=== PATIENT | male | born 1930 | race Caucasian/White ===

== ENCOUNTER 2017-03-09 09:31 | Inpatient (IN) | payer MEDICARE, OTHER ==
[~2017-03-09] VITALS: Ht 182.9 cm; Wt 81.7 kg
[~2017-03-09 09:31] MED LIST: AMLO5TAB4 PO; FENO54TA3 PO; FLUO10CA26 PO; GABA300C PO; HYDR-3658 PO; LORA-676 PO; LOVA20TA2 PO; METF500T PO; OMEP20CA4 PO; RISP2TAB5 PO; TERA5CAP4 PO
--- NOTE | 2017-03-09 09:45 | NUR ---
PT BIB RA FROM [facility] FOR LOW O2 SAT AND INCREASING SOB. BREATHING LABORED, SAT 92% ON 10L VIA MASK WHICH WAS INCREASED FROM 8L UPON ARRIVAL. SKIN WARM, DRY. AFEBRILE. NOTED WITH DIFFUSE URTICARIA OVER WHOLE BODY. NO COMPLAINTS OF PAIN. NO COUGH. AT BASELINE LOC. ON C-DIFF ISOLATION, RECEIVING ABX CURRENTLY. IN ER BED 05 ON MONITOR AND CONTINUOUS PULSE OX.
[2017-03-09] MEDS ORDERED: ALBUTEROL FS 2.5 MG/3 ML VIAL.NEB NEB ONE (10:00)
[2017-03-09] MEDS ORDERED: IPRATROPIUM NEB FS 0.5 MG/2.5 ML AMPUL.NEB NEB ONE (10:00)
[2017-03-09] MEDS ORDERED: predniSONE 20 MG TABLET PO ONE (10:00)
[2017-03-09] MEDS ORDERED: OMEG-9 PO (10:04)
[2017-03-09] MEDS ORDERED: LOSA50TA21 PO (10:04)
[2017-03-09] MEDS ORDERED: DONE10TA11 PO (10:04)
[2017-03-09] MEDS ORDERED: GABA-534 PO (10:04)
[2017-03-09] MEDS ORDERED: ACID1TAB12 PO (10:04)
[2017-03-09] MEDS ORDERED: CALC-261 PO (10:04)
[2017-03-09] MEDS ORDERED: APIX5TAB PO (10:04)
[2017-03-09] MEDS ORDERED: MULT1TAB11 PO (10:04)
[2017-03-09] MEDS ORDERED: PRED20TA PO (10:04)
[2017-03-09] MEDS ORDERED: DILT240C2 PO (10:04)
[2017-03-09] MEDS ORDERED: TRIA15OI2 TP (10:04)
[2017-03-09] MEDS ORDERED: AMIO200T2 PO (10:04)
[2017-03-09] MEDS ORDERED: MAGN400O6 PO (10:04)
[2017-03-09] MEDS ORDERED: ALBU8.5H8 IH (10:04)
[2017-03-09] MEDS ORDERED: ACET-868 PO (10:04)
[2017-03-09] MEDS ORDERED: LATA2.5D7 EACHEYE (10:04)
[2017-03-09] MEDS ORDERED: PSYL1PAC8 PO (10:04)
[2017-03-09] MEDS ORDERED: IPRA3AMP IH (10:04)
[2017-03-09] MEDS ORDERED: FINA5TAB4 PO (10:04)
[2017-03-09] MEDS ORDERED: METR500T PO (10:04)
[2017-03-09] MEDS ORDERED: MECL12.582 PO (10:04)
[2017-03-09] MEDS ORDERED: BIMA2.5D5 EACHEYE (10:04)
[2017-03-09] MEDS ORDERED: INSU100V27 SQ (10:04)
[2017-03-09] MEDS ORDERED: predniSONE 20 MG TABLET ONE (10:05)
[2017-03-09 10:06] LABS: BASOPHILS % (AUTO) 0.3 % (0.0-2.0); EOSINOPHILS # (AUTO) 0.1 /CMM (0.0-0.7); EOSINOPHILS % (AUTO) 0.6 % (0.0-6.0); HEMATOCRIT 39 % (39-51); LYMPHOCYTES # (AUTO) 0.4 /CMM (0.8-4.8); LYMPHOCYTES % (AUTO) 2.4 % (20.0-44.0); MEAN CORPUSCULAR HEMOGLOBIN 31 PG (26.0-33.0); MEAN CORPUSCULAR HGB CONC 34 g/dl (31.0-36.0); MEAN CORPUSCULAR VOLUME 92 fL (80-96); MONOCYTES # (AUTO) 0.6 /CMM (0.1-1.30); MONOCYTES % (AUTO) 3.7 % (2.0-12.0); NEUTROPHILS # (AUTO) 13.9 /CMM (1.8-8.9); PLATELET COUNT (AUTO) 231 /CMM (150-450); RDW COEFFICIENT OF VARIATION 16.1 (11.5-15.0); WHITE BLOOD COUNT (AUTO) 14.9 K/uL (4.3-11.0)
[2017-03-09] MEDS ORDERED: IPRATROPIUM NEB FS 0.5 MG/2.5 ML AMPUL.NEB ONE (10:07)
[2017-03-09] MEDS ORDERED: ALBUTEROL FS 2.5 MG/3 ML VIAL.NEB ONE (10:07)
[2017-03-09 10:16] LABS: CARBON DIOXIDE 26 mmol/L (21-32); CHLORIDE 101 mmol/L (98-107); CREATININE 0.9 mg/dL (0.6-1.3); GLUCOSE 265 mg/dL (74-106); SODIUM SERUM 137 mmol/L (136-145); UREA NITROGEN, BLOOD 13 mg/dL (7-18)
[2017-03-09 10:25] LABS: INR 1.22 (0.87-1.13); PROTHROMBIN TIME 12.7 SECS (9.5-12.7)
[2017-03-09 10:28] LABS: ALANINE AMINOTRANSFERASE 23 U/L (12-78); ALBUMIN 2.1 g/dL (3.4-5.0); ALKALINE PHOSPHATASE 66 U/L (46-116); ASPARTATE AMINOTRANSFERASE 17 U/L (15-37); B-TYPE NATRIURETIC PEPTIDE 1092 PG/ML (0-125); BILIRUBIN,DIRECT 0.2 mg/dL (0.0-0.2); BILIRUBIN,TOTAL 0.5 mg/dL (0.2-1.0); TOTAL PROTEIN, SERUM 5.7 g/dL (6.4-8.2)
[2017-03-09 10:29] LABS: TROPONIN I < 0.017 ng/mL (0.00-0.056)
--- NOTE | 2017-03-09 10:32 | NUR ---
NOTIFIED OF LACTIC ACID 2.7 AND O2 SAT 89% ON 10L VIA SIMPLE MASK. PER DR MADRIGAL, OK FOR 89%, DO NOT PLACE ON NRB AT THIS TIME. WILL CONTINUE TO CLOSELY MONITOR PULSE OX.
[2017-03-09] MEDS ORDERED: IV NS 0.9% 1,000 ML BAG IV ONE (11:00)
[2017-03-09] MEDS ORDERED: LEVOFLOXACIN 750 MG /D5W 150ML 150 ML IV ONE ×2 (11:00→11:41)
[2017-03-09] MEDS ORDERED: PIPERACILLIN /TAZOBACTAM 3.375 G in IV D5W 50 ML IV ONE (11:00)
--- NOTE | 2017-03-09 11:13 | NUR ---
O2 SAT DROPPED TO 84%. MD NOTIFIED. PLACED ON NRB MASK AT 15L.
--- NOTE | 2017-03-09 11:23 | NUR ---
BED 317
--- NOTE | 2017-03-09 11:32 | NUR ---
DR. ASUNCION ACKERMAN.
[2017-03-09] MEDS ORDERED: PIPERACILLIN /TAZOBACTAM 3.375 G VIAL IV ONE (11:41)
[2017-03-09 11:53] LABS: ABG BASE EXCESS -0.2 mmol/L; ABG OXYGEN SATURATION 90.7 % (92.0-98.5); ABG PCO2 28.2 mmHg (35.0-45.0); ABG PH 7.506 (7.350-7.450); ABG PO2 59.3 mmHg (75.0-100.0); AaDO2 481.5 mmHg; COHb 0.7 % (0.5-1.5); MetHb 0.4 % (0.0-1.5); O2Hb 89.7 % (94.0-97.0); SITE, ABG Right Radial; VENT MODE, BG NRB 15L
--- NOTE | 2017-03-09 12:33 | NUR ---
RESTING QUIETLY, TOLERATING AT 90% ON NRB MASK AT 15L. OK PER MD. ALL OTHER VSS. ALL NEEDS ATTENDED TO. FAMILY UPDATED WITH PLAN OF CARE.
[2017-03-09 14:05] LABS: APPEARANCE,URINE CLEAR (CLEAR); BILIRUBIN,URINE NEGATIVE (NEGATIVE); BLOOD, URINE 1+ Ery/uL (NEGATIVE); COLOR,URINE DARK YELLO (YELLOW); KETONES,URINE NEGATIVE (NEGATIVE); LEUKOCYTE ESTERASE ,URINE NEGATIVE (NEGATIVE); NITRITE, URINE POSITIVE (NEGATIVE); PH,URINE 6.5 (5.0-8.0); PROTEIN,URINE 1+ mg/dl (NEGATIVE); UGLUCOSE NEGATIVE (NEGATIVE); UROBILINOGEN,URINE 0.2 EU/dL (0.2)
[2017-03-09 14:45] LABS: BACTERIA,URINE None seen /HPF (None Seen); SQUAMOUS EPITHELIAL CELL,UR Few /HPF (None Seen); WBC,URINE 0-2 /HPF (0-3)
--- NOTE | 2017-03-09 14:52 | NUR ---
BED [address].
--- NOTE | 2017-03-09 15:00 | NUR ---
RESTING QUIETLY, NO INCREASED DISTRESS. ALL NEEDS ATTENDED TO. TOLERATING NRB MASK.
--- NOTE | 2017-03-09 15:29 | NUR ---
REPORT GIVEN TO TALISHA GOODE FOR ADMISSION
--- NOTE | 2017-03-09 15:45 | NUR ---
PT TRANSPORTED TO CT THEN TO 105 VIA ACLS PROTOCOL. REMAINS ON NRB MASK.
[2017-03-09 16:42] VITALS: BP 111/54
[2017-03-09] MEDS ORDERED: POTASSIUM CHLORIDE 20 MEQ TAB.PRT.SR PO ONE (18:30)
[2017-03-09] MEDS ORDERED: DEXTROSE 50%-WATER 50 ML DISP.SYRIN IV PRN (19:00)
[2017-03-09 20:00] VITALS: BP 127/67
--- NOTE | 2017-03-09 20:00 | NUR ---
received pt from day shift, alert, follows commands, s/p COPD exacerbation, lungs congested/diminished, no edema, on 12L non rebreather, sat 91-93%, SR, 1 degree block, BBB, excoriation and generalized raines noted, v/s stable, no pain, pt turned and repositioned.
[2017-03-09] MEDS: PIPERACILLIN /TAZOBACTAM 3.375 G in IV D5W 50 ML IV SCH (20:46)
[2017-03-09] MEDS ORDERED: ACETAMINOPHEN 325 MG TABLET PO PRN (21:00)
[2017-03-09] MEDS ORDERED: MECLIZINE HCL 12.5 MG TABLET PO PRN (21:00)
[2017-03-09] MEDS ORDERED: MAGNESIUM HYDROXIDE 30 ML UDC PO PRN (21:00)
[2017-03-09] MEDS ORDERED: ALBUTEROL SULFATE 8 GM HFA.AER.AD IH PRN (21:00)
[2017-03-09] MEDS ORDERED: MISCELLANEOUS MED 1 EA EA XX ONE ×3 (21:00)
[2017-03-09] MEDS: ATORVASTATIN 10 MG TABLET PO SCH (21:35)
[2017-03-09] MEDS: FINASTERIDE (5 MG) 5 MG TABLET PO SCH (21:35)
[2017-03-09] MEDS: TERAZOSIN HCL 5 MG CAPSULE PO SCH (21:35)
[2017-03-09] MEDS: GABAPENTIN 300 MG CAPSULE PO SCH (21:36)
[2017-03-09] MEDS: DONEPEZIL 5 MG TABLET PO SCH (21:36)
[2017-03-09] MEDS: LATANOPROST EYE DROP 0.005% 2.5 ML BOTTLE EACHEYE SCH (21:36)
[2017-03-09] MEDS: METRONIDAZOLE 500 MG TABLET PO SCH (21:36)
[2017-03-09] MEDS ORDERED: BIMATOPROST 2.5 ML DROPS OP SCH (22:00)
[2017-03-09] MEDS: BLOOD SUGAR DIAGNOSTIC 1 EACH STRIP IN SCH (22:35)
[2017-03-09] MEDS: INSULIN REGULAR, HUMAN 100 UNIT/ML 3 ML VIAL SQ PRN (22:35)
[2017-03-09] MEDS: IPRATROPIUM NEB FS 0.5 MG/2.5 ML AMPUL.NEB NEB SCH (23:11)
[2017-03-10] VITALS (35 sets, daily range): BP systolic 98–169; BP diastolic 56–85
--- NOTE | 2017-03-10 00:17 | NUR ---
pt is resting in the bed, v/s stable, no pain, sat 95%, on non rebreather mask.
[2017-03-10] MEDS: PIPERACILLIN /TAZOBACTAM 3.375 G in IV D5W 50 ML IV SCH ×4 (02:09→20:34)
[2017-03-10] MEDS: IPRATROPIUM NEB FS 0.5 MG/2.5 ML AMPUL.NEB NEB SCH ×6 (03:08→23:30)
--- NOTE | 2017-03-10 04:59 | NUR ---
pt is resting in the bed, on non rebreather mask at 15L, sat 92%, v/s stable, no pain, pt cleaned, changed and repositioned q2hrs.
[2017-03-10] MEDS: METRONIDAZOLE 500 MG TABLET PO SCH ×3 (05:06→20:35)
[2017-03-10 06:45] LABS: EOSINOPHILS % (AUTO) 0.1 % (0.0-6.0); HEMATOCRIT 37 % (39-51); HEMOGLOBIN 12.4 g/dL (13.5-17.5); LYMPHOCYTES # (AUTO) 0.4 /CMM (0.8-4.8); LYMPHOCYTES % (AUTO) 2.2 % (20.0-44.0); MEAN CORPUSCULAR HEMOGLOBIN 31 PG (26.0-33.0); MEAN CORPUSCULAR HGB CONC 34 g/dl (31.0-36.0); MEAN CORPUSCULAR VOLUME 93 fL (80-96); MONOCYTES # (AUTO) 0.6 /CMM (0.1-1.30); MONOCYTES % (AUTO) 3.5 % (2.0-12.0); NEUTROPHILS # (AUTO) 17.2 /CMM (1.8-8.9); NEUTROPHILS % (AUTO) 94.2 % (43.0-81.0); PLATELET COUNT (AUTO) 231 /CMM (150-450); RDW COEFFICIENT OF VARIATION 16.6 (11.5-15.0); RED BLOOD CELL COUNT(AUTO) 3.98 MIL/uL (4.5-6.0); WHITE BLOOD COUNT (AUTO) 18.3 K/uL (4.3-11.0)
[2017-03-10 06:58] LABS: CALCIUM, SERUM 8.1 mg/dL (8.5-10.1); CARBON DIOXIDE 24 mmol/L (21-32); CHLORIDE 106 mmol/L (98-107); CREATININE 0.7 mg/dL (0.6-1.3); GLUCOSE 146 mg/dL (74-106); POTASSIUM 3.8 mmol/L (3.5-5.1); SODIUM SERUM 139 mmol/L (136-145); UREA NITROGEN, BLOOD 14 mg/dL (7-18)
[2017-03-10] MEDS: INSULIN REGULAR, HUMAN 100 UNIT/ML 3 ML VIAL SQ PRN ×2 (07:59→22:48)
[2017-03-10] MEDS: BLOOD SUGAR DIAGNOSTIC 1 EACH STRIP IN SCH ×4 (08:00→22:48)
--- NOTE | 2017-03-10 08:00 | NUR ---
RN MILADY: pt.is A/Ox2, on NRBM 15L since yesterday, O2 sat. 88-91%, slightly laboring breathing and wheezing, SR, SBP over 100, no acute pain now, BS 142/covered with insulin SS, spoke with RT, ABG order placed, going for resp.Tx
[2017-03-10] MEDS: PANTOPRAZOLE 40 MG TABLET.DR PO SCH (08:01)
[2017-03-10] MEDS: GABAPENTIN 300 MG CAPSULE PO SCH ×3 (08:01→21:34)
--- NOTE | 2017-03-10 08:40 | NUR ---
RN MILADY: pt. is in room, notified re pt.current condition, VS, orders, POC, pt.RR 24-28, O2 sat. 88-90%, waiting ABG result f/u request
[2017-03-10] MEDS: APIXABAN 5 MG TABLET PO SCH ×2 (08:45→17:44)
[2017-03-10] MEDS: PSYLLIUM SEED 1 PKT PACKET PO SCH (08:45)
[2017-03-10] MEDS: LOSARTAN POTASSIUM 50 MG TABLET PO SCH (08:46)
[2017-03-10] MEDS: CALCIUM CARB 250MG /VITAMIN D 1 UDTAB PO SCH (08:46)
[2017-03-10] MEDS: LORATADINE 10 MG TABLET PO SCH (08:46)
[2017-03-10] MEDS: AMIODARONE HCL 200 MG TABLET PO SCH ×2 (08:50→17:44)
[2017-03-10] MEDS: MULTIVIT, IRON, MIN NO. 8, FA 1 TAB PO SCH (08:50)
[2017-03-10] MEDS: ACIDOPHILUS/BULGARICUS 1 EACH TAB.CHEW PO SCH (08:50)
[2017-03-10] MEDS: TRIAMCINOLONE OINT 0.1% 15 GM TUBE TP SCH ×3 (08:51→17:42)
[2017-03-10] MEDS ORDERED: Fluoxetine 10 mg capsule PO SCH (09:00)
[2017-03-10] MEDS ORDERED: predniSONE 20 MG TABLET PO SCH (09:00)
[2017-03-10 09:02] LABS: ABG BASE EXCESS -2.2 mmol/L; ABG OXYGEN SATURATION 89.7 % (92.0-98.5); ABG PH 7.466 (7.350-7.450); ABG PO2 56.2 mmHg (75.0-100.0); AaDO2 483.8 mmHg; COHb 0.1 % (0.5-1.5); MetHb 0.3 % (0.0-1.5); O2Hb 89.3 % (94.0-97.0); SITE, ABG Right Radial; VENT MODE, BG 15 L NRB
--- NOTE | 2017-03-10 09:10 | NUR ---
SHORT RANGE AIR DEFENSE ARTILLERY: notified with ABG, ordered: transfer pt.to ICU stat and place on Bipap, pt.started c/o chest pain, -11/03, is in unit/updated/going to see pt.
--- NOTE | 2017-03-10 09:25 | NUR ---
RN MILADY: pt is transferred to ICU with full report for Job, RN and placed on Bipap, said: feels better, see new orders
--- NOTE | 2017-03-10 09:48 | NUR ---
RT WV PLACED ON BIPAP PER PELEG ORDER POST ABG RESULTS WITH NOTED SETTING. PT TOLERATING BIPAP WELL. WILL CONTINUE TO MONITOR. ALARMS SET AND AUDIBLE, AMBU BAG AT [facility], BIPAP PLUGGED TO RED OUTLET. Addendum: 03/10/17 at 0949 by RACHEL KAPLAN RT Amended: Links added.
--- NOTE | 2017-03-10 09:50 | NUR ---
PT RECVD FROM MILADY, IN RESPIRATORY DISTRESS SPO2 78% AND RATE IS IN THE 30'S ORDERED BY DR. KILGORE TO PLACE ON BIPAP. RT AND RN AT BEDSIDE TO SETTLE HIM IN ICU. HE HAS A HISTORY OF COPD BUT IS A "NON RETAINER" ACCORDING TO REPORT.
[2017-03-10] MEDS ORDERED: FLUOXETINE HCL 20 MG CAPSULE PO SCH (09:53)
[2017-03-10 10:14] LABS: THYROID STIMULATING HORMONE 2.5 uIU/mL (0.358-3.74)
[2017-03-10 10:43] LABS: MAGNESIUM 1.7 mg/dL (1.8-2.4); TROPONIN I 0.017 ng/mL (0.00-0.056)
--- NOTE | 2017-03-10 11:00 | NUR ---
PT BECOMES IRRITATED WITH BIPAP AND REMOVES MASK. SATURATION DROPS LOW AT 72%. AFTER THOROUGHLY EXPLAINING TO HIM THAT HE IS IN DANGER OF IMMINENT , HE AGREES TO ALLOW US TO PLACE THE BIPAP BACK ON.
--- NOTE | 2017-03-10 11:32 | NUR ---
PT REMOVES BIPAP AGAIN, EXPLAINED TO HIM THOROUGHLY AGAIN BUT HE IS NON COMPLIANT AND DESATTING INTO THE 70'S AGAIN. ORDER OBTAINED FOR SOFT WRIST RESTRAINTS. REPOSITIONED THE PATIENT FOR COMFORT. HE IS CALM NOW.
[2017-03-10] MEDS: LEVOFLOXACIN (500MG) 500 MG TABLET PO SCH (12:23)
[2017-03-10] MEDS: DILTIAZEM HCL CD 240 MG PO SCH (12:24)
[2017-03-10 12:39] LABS: ABG BASE EXCESS -2.1 mmol/L; ABG OXYGEN SATURATION 97.7 % (92.0-98.5); ABG PCO2 27.4 mmHg (35.0-45.0); ABG PH 7.484 (7.350-7.450); AaDO2 571.6 mmHg; COHb 0.3 % (0.5-1.5); MetHb 0.3 % (0.0-1.5); O2Hb 97.1 % (94.0-97.0); PEEP,BG 8 cm H2O; SITE, ABG Right Radial; VENT MODE, BG ST 18/8 R12 100%
--- NOTE | 2017-03-10 12:58 | NUR ---
DR. KILGORE SEES ABG DRAWN AROUND 1230, HE ORDERS TO DROP THE FIO2 DOWN TO 80%.
[2017-03-10] MEDS: methylPREDNISolone SOD SUCC 125 MG/2ML VIAL IV SCH ×2 (15:27→20:35)
[2017-03-10] MEDS: NYSTATIN/TRIAMCIN CREAM 15 GM TUBE TP SCH ×2 (15:28→17:42)
--- NOTE | 2017-03-10 16:01 | NUR ---
Patient is a resident of [facility] [phone], Requires assistance with adl's. is involved and supportive with plan of care. Plan to dc back to SNF when d/c Addendum: 03/10/17 at 1601 by YESENIA GARCES RN Amended: Links added.
--- NOTE | 2017-03-10 18:29 | NUR ---
REGARDING CHEST XRAY AT [facility] REQUEST BY DR KILGORE 03/10/17 FAXED CONSENT TO RELEASE INFORMATION TO [facility] [phone] (FAX NUMBER). THEY FAXED BACK STATING THAT THE PT DOES NOT HAVE ANY CHEST XRAYS AT [facility]. I ALSO FAXED A SEPERATE CONSENT FOR INFORMATION RELEASE TO THE SAME NUMBER BECAUSE THEY OVERSEE, [facility] TOO. THEY FAXED BACK, A CHEST XRAY, I PLACED IT ON THE FRONT PAGE OF THE CHART. Addendum: 03/10/17 at 1834 by BRENDEN CHRISTENSEN RN Amended: Links added.
--- NOTE | 2017-03-10 21:00 | NUR ---
AUTO GLASS WORKER - REC'D PT. IN BED W/BIPAP MASK ON. SETTINGS ARE I:E=18/8,RATE=12 & 70%. PT.IS ATTEMPTING TO TAKE OFF BIPAP MASK EVEN W/BILAT. SOFT WRIST RESTRAINTS ON. PT. IS A&O TO SELF & KNOWS HE IS IN THE "HOSPITAL". PT. WAS REORIENTED TO DATE,TIME,PLACE & EVENT. AFEBRILE. DENIES PAIN AT PRESENT TIME. PT'S MARY PHONED EARLIER & WAS GIVEN STATUS UPDATE. ALL PULSES PALPABLE X 4 EXT. 2 PIV'S ARE BOTH PATENT TO FLUSH. GREEN CATH TO GRAVITY W/MINIMAL UOP. PT. HAS MAJOR SKIN/WOUND ISSUES TO BUTTOCKS/SACRAL AREA. 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 SBP'S ARE 120-140'S. CONT. POC.
[2017-03-10] MEDS: LATANOPROST EYE DROP 0.005% 2.5 ML BOTTLE EACHEYE SCH (21:30)
[2017-03-10] MEDS: TERAZOSIN HCL 5 MG CAPSULE PO SCH (21:31)
[2017-03-10] MEDS: ATORVASTATIN 10 MG TABLET PO SCH (21:31)
[2017-03-10] MEDS: DONEPEZIL 5 MG TABLET PO SCH (21:32)
[2017-03-10] MEDS: FINASTERIDE (5 MG) 5 MG TABLET PO SCH (21:32)
[2017-03-11] VITALS (36 sets, daily range): BP systolic 61–187; BP diastolic 29–96
--- NOTE | 2017-03-11 00:30 | NUR ---
SALVATIONIST - A COMPLETE BEDBATH ADMINISTERED DUE TO FECAL INCONTINENCE. ORAL,PAUL & SKIN/WOUND CARE ADM. PT.HAS SIGNIFICANT WOUND ISSUES. NYSTATIN & ZGUARD CREAM MIXED AND APPLIED TO SACRAL,BUTTOCKS & PAUL AREA. MEPILEX TO COCCYX. CONT. POC.
[2017-03-11] MEDS: PIPERACILLIN /TAZOBACTAM 3.375 G in IV D5W 50 ML IV SCH ×2 (02:01→09:07)
[2017-03-11] MEDS: IPRATROPIUM NEB FS 0.5 MG/2.5 ML AMPUL.NEB NEB SCH ×3 (03:02→11:17)
--- NOTE | 2017-03-11 03:45 | NUR ---
MANAGER GIFT - PT. CONTINUES TO ALARM BIPAP MACHINE. PT.IS IN BILAT.SOFT WRIST RESTRAINTS TO PREVENT HIM FROM TAKING OFF MASK AND O2 SENSOR. PT. IS SPITTING IN HIS MASK. RN IS CONTINUOUSLY SXING PT. PT. DESATS VERY,VERY EASILY. A COUPLE SECONDS OFF & HE IS SATTING IN THE 80"S. THE BIPAP MASK IS A LARGE MASK, HOWEVER IT IS ALITTLE SMALL ON PT'S FACE. PAGED RT FOR HELP RE: A BIGGER MASK. CONT. POC.
[2017-03-11] MEDS: METRONIDAZOLE 500 MG TABLET PO SCH ×2 (04:43→12:39)
[2017-03-11] MEDS: methylPREDNISolone SOD SUCC 125 MG/2ML VIAL IV SCH ×2 (04:43→12:39)
[2017-03-11 05:06] LABS: HEMATOCRIT 37 % (39-51); LYMPHOCYTES # (AUTO) 0.2 /CMM (0.8-4.8); LYMPHOCYTES % (AUTO) 1.2 % (20.0-44.0); MEAN CORPUSCULAR HEMOGLOBIN 31 PG (26.0-33.0); MEAN CORPUSCULAR HGB CONC 33 g/dl (31.0-36.0); MEAN CORPUSCULAR VOLUME 93 fL (80-96); MONOCYTES # (AUTO) 0.3 /CMM (0.1-1.30); MONOCYTES % (AUTO) 1.5 % (2.0-12.0); NEUTROPHILS # (AUTO) 17.6 /CMM (1.8-8.9); NEUTROPHILS % (AUTO) 97.3 % (43.0-81.0); PLATELET COUNT (AUTO) 249 /CMM (150-450); RDW COEFFICIENT OF VARIATION 16.4 (11.5-15.0); RED BLOOD CELL COUNT(AUTO) 3.94 MIL/uL (4.5-6.0); WHITE BLOOD COUNT (AUTO) 18.1 K/uL (4.3-11.0)
[2017-03-11 05:25] LABS: ALANINE AMINOTRANSFERASE 20 U/L (12-78); ALBUMIN 1.8 g/dL (3.4-5.0); ALKALINE PHOSPHATASE 73 U/L (46-116); ASPARTATE AMINOTRANSFERASE 18 U/L (15-37); BILIRUBIN,TOTAL 0.7 mg/dL (0.2-1.0); CALCIUM, SERUM 8.3 mg/dL (8.5-10.1); CARBON DIOXIDE 25 mmol/L (21-32); CHLORIDE 107 mmol/L (98-107); CREATININE 0.9 mg/dL (0.6-1.3); GLUCOSE 201 mg/dL (74-106); MAGNESIUM 1.9 mg/dL (1.8-2.4); PHOSPHORUS 3.4 mg/dL (2.5-4.9); POTASSIUM 4.1 mmol/L (3.5-5.1); SODIUM SERUM 141 mmol/L (136-145); TOTAL PROTEIN, SERUM 5.5 g/dL (6.4-8.2); UREA NITROGEN, BLOOD 22 mg/dL (7-18)
[2017-03-11 05:28] LABS: TROPONIN I < 0.017 ng/mL (0.00-0.056)
--- NOTE | 2017-03-11 06:30 | NUR ---
MEDICAL UNIT SECRETARY - NO CHANGES FROM PREVIOUS ASSESSMENTS. PT. CONTINUES ON BIPAP MASK AT SAME SET - TINGS. REPORT ENDORSED TO PRIYA CHRISTIANSON. SOFT WRIST RESTRAINTS INTACT. CONT. POC.
--- NOTE | 2017-03-11 07:35 | NUR ---
TRANSMISSION INSPECTOR RECEIVED PATENT FROM THE PREVIOUS SHIFT. PATIENT IS IN BED. RESTING COMFORTABLY. NO ACUTE DISTRESS NOTED. AFEBRILE. SINUS RHYTHM ON MONITOR. ALERT AND ORIENTED X 1-2. BIPAP SETTINGS REVIEWED AND VERIFIED. TURNED AND REPOSITIONED FOR COMFORT AND WOUND PREVENTION. WILL CONTINUE TO MONITOR AND PROVIDE CARE.
[2017-03-11] MEDS ORDERED: diphenhydrAMINE HCL 50 MG/ML VIAL IV PRN (08:30)
[2017-03-11] MEDS: PSYLLIUM SEED 1 PKT PACKET PO SCH (08:57)
[2017-03-11] MEDS: GABAPENTIN 300 MG CAPSULE PO SCH ×2 (08:59→12:39)
[2017-03-11] MEDS: ACIDOPHILUS/BULGARICUS 1 EACH TAB.CHEW PO SCH (08:59)
[2017-03-11] MEDS: LOSARTAN POTASSIUM 50 MG TABLET PO SCH (08:59)
[2017-03-11] MEDS: CALCIUM CARB 250MG /VITAMIN D 1 UDTAB PO SCH (08:59)
[2017-03-11] MEDS: LORATADINE 10 MG TABLET PO SCH (08:59)
[2017-03-11] MEDS: TRIAMCINOLONE OINT 0.1% 15 GM TUBE TP SCH ×2 (09:00→12:39)
[2017-03-11] MEDS: DILTIAZEM HCL CD 240 MG PO SCH (09:00)
[2017-03-11] MEDS: AMIODARONE HCL 200 MG TABLET PO SCH (09:00)
[2017-03-11] MEDS: MULTIVIT, IRON, MIN NO. 8, FA 1 TAB PO SCH (09:00)
[2017-03-11] MEDS: BLOOD SUGAR DIAGNOSTIC 1 EACH STRIP IN SCH ×2 (09:02→12:34)
[2017-03-11] MEDS: NYSTATIN/TRIAMCIN CREAM 15 GM TUBE TP SCH (09:02)
[2017-03-11] MEDS: INSULIN REGULAR, HUMAN 100 UNIT/ML 3 ML VIAL SQ PRN ×2 (09:03→12:44)
[2017-03-11] MEDS: APIXABAN 5 MG TABLET PO SCH (09:07)
[2017-03-11] MEDS: PANTOPRAZOLE 40 MG TABLET.DR PO SCH (09:07)
--- NOTE | 2017-03-11 09:30 | NUR ---
DYE HOUSE SUPERVISOR PATIENT NOTED TO BE DISTRESSED AND RESTLESS ON THE BIPAP. PATIENT'S RESPIRATORY RATE IS AT 40S ON BIPAP. PATIENT NOTED TO REFUSE BIPAP AT THIS TIME. PATIENT IS ON ACUTE MEDICAL RESTRAINTS IN ORDER AVOID REMOVAL OF THE BIPAP BY SELF. FAMILY AT BEDSIDE. ONGOING DISCUSSIONS TO COMFORT CARE. RN AND CHARGE NURSE PROVIDED FAMILY EDUCATION REGARDING. COMFORT CARE AND CARE OPTIONS FOR THE PATIENT AT THIS TIME. FAMILY VERBALIZED UNDERSTANDING.
--- NOTE | 2017-03-11 12:35 | NUR ---
WELD ENGINEER PATIENT IS DISTRESSED ON CURRENT BIPAP SETTINGS. RESPIRATORY RATE AT 40S. CURRENT CODE STATUS DIRECTS TOWARDS NOT INTUBATING.
[2017-03-11] MEDS: LEVOFLOXACIN (500MG) 500 MG TABLET PO SCH (12:40)
--- NOTE | 2017-03-11 13:05 | NUR ---
HYDRAULIC ROCKBREAKER OPERATOR PATIENT'S SONS AND AT BEDSIDE. RN FACILITATED A PHONE CALL BETWEEN , SONS AND THE PRIMARY PHYSICIAN. COMFORT CARE ORDERS RECEIVED BY PRIMARY CARE PHYSICIAN. RN PROVIDED FAMILY EDUCATION. FAMILY VERBALIZED UNDERSTANDING.
--- NOTE | 2017-03-11 13:15 | NUR ---
LONG D/W AND STEP DAUGHTER REGARDING OPTIONS OF CARE . PT CURRENTLY DNI BUT OTHERWISE FULL RX. 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 ON BIIPAP SUPPORT RESPIR RATE IS 48 BPM WITH SPO2 94%. Penelope HERNANDEZS AT BEDSIDE AND CANNOT MAXIMIZE SETTINGS FURTHER. FURNACE INSTALLER HELPER REFUGIO IN ONE HOUR EARLIER: SEE HIS NOTE. PT VERY UNCOMFORTABLE AND NON COMPLIANT ON BIPAP AND HE KEEPS FLAILING AND TRYING TO REMOVE MASK. WHEN PT BRIEFLY REMOVES MASK, < 5 SECONDS, IMMEDIATE DESAT TO 85%, HR 144, RR 60 MIN AND PANTING RESPIR PATTERN. ALL ABOVE D/W DR ROLAND TELEPHONICALLY. SPOKE WITH MRS YAÑEZ BY PHONE EXTENSIVELY. MRS YAÑEZ VERY CLEAR THAT SHE WANTS COMFORT CARE PROGRAM WITH BIPAP MASK OFF PERMANENTLY. BOTH SONS CALLED AND WILL COME TO HOSPITAL PRIOR TO ME INITIATING COMFORT ORDERS THAT WERE GIVEN TO ME BY DR ROLAND
[2017-03-11] MEDS ORDERED: MORPHINE SULFATE INJ 2 MG/ML DISP.SYRIN IV PRN ×2 (14:00→15:30)
[2017-03-11] MEDS: LORAZEPAM INJ 2 MG/ML VIAL IV PRN ×2 (14:24→16:31)
--- NOTE | 2017-03-11 14:32 | NUR ---
SONS, AND EXTENDED FAMILY AT BEDSIDE. PT PREMEDITATED WITH MORPHINE AND ATIVAN FOR REPIR RATE > 40 PM WITH SUBSEQUENT DECREASE IN RESPIR RATE TO 30 BPM AND THEN BIPAP MASK REMOVED BY R.T
--- NOTE | 2017-03-11 14:37 | NUR ---
RT PATIENT PLACED ON COMFORT MEASURES. BIPAP REMOVED AND PLACED ON SUPPLEMENTAL O2.
--- NOTE | 2017-03-11 14:46 | NUR ---
LABORED, TACHYPNEIC AND CYANOTIC. EYES ROLLED BACK IN HEAD. FREQ COUGH. SPO2 64 ON N/C. WILL GIVE ADD'L DOSE OF MORPHINE FOR RR>30. FAMILY AT BEDSIDE AND ASKS FOR SAME
[2017-03-11] MEDS ORDERED: MORPHINE SULFATE INJ 4 MG/ML DISP.SYRIN IV ONE (15:00)
--- NOTE | 2017-03-11 16:34 | NUR ---
AUDIBLE MOAN WITH EACH EXHALATION-ATIVAN 2 MG IVP PER FAMILY DIRECTION TO ENSURE COMFORT
--- NOTE | 2017-03-11 17:48 | NUR ---
NV PRONOUNCED . NO CODE/COMFORT CARE STATUS. NO APICAL HEART TONES. NO BP OBTAINABLE. ASYSTOLE ON MONITOR. NO RESPIRATORY EFFORT. PUPILS FIXED AND DILATED. AND CHILDREN AT BEDSIDE
--- NOTE | 2017-03-11 17:55 | NUR ---
CARPET INSPECTOR CALLED [facility] AND SPOKE TO NA. . PATIENT DOES NOTE QUALIFY DUE TO AGE REQUIREMENTS.
== END 2017-03-11 18:12 | disposition expired | DRG 177 ==
LOC: ER 09:33 → TELE1 15:18 → ICU 03-10 09:32
PROVIDERS: ADMIT Internal Medicine Nephrology; ATTEND Internal Medicine Nephrology
PROC: 5A09357 Assistance with Respiratory Ventilation, Less than 24 Consecutive Hours, Continuous Positive Airway Pressure (ICD-10-PCS; 2017-03-10)
PROC: 05H533Z Insertion of Infusion Device into Right Subclavian Vein, Percutaneous Approach (ICD-10-PCS; principal; 2017-03-11)
PROC: B546ZZA Ultrasonography of Right Subclavian Vein, Guidance (ICD-10-PCS; 2017-03-11)
PROC: 05H633Z Insertion of Infusion Device into Left Subclavian Vein, Percutaneous Approach (ICD-10-PCS; 2017-03-11)
PROC: B547ZZA Ultrasonography of Left Subclavian Vein, Guidance (ICD-10-PCS; 2017-03-11)
DX: J15.6 Pneumonia due to other Gram-negative bacteria (principal); G92 Toxic encephalopathy; J96.01 Acute respiratory failure with hypoxia; L89.322 Pressure ulcer of left buttock, stage 2; A04.72 Enterocolitis due to Clostridium difficile, not specified as recurrent; E87.2 Acidosis; L89.529 Pressure ulcer of left ankle, unspecified stage; J44.1 Chronic obstructive pulmonary disease with (acute) exacerbation; E11.9 Type 2 diabetes mellitus without complications; J15.9 Unspecified bacterial pneumonia; F03.90 Unspecified dementia, unspecified severity, without behavioral disturbance, psychotic disturbance, mood disturbance, and anxiety; E78.5 Hyperlipidemia, unspecified; E87.6 Hypokalemia; H40.9 Unspecified glaucoma; I70.0 Atherosclerosis of aorta; K21.9 Gastro-esophageal reflux disease without esophagitis; Z87.891 Personal history of nicotine dependence; Z79.899 Other long term (current) drug therapy; Z88.8 Allergy status to other drugs, medicaments and biological substances; Z79.4 Long term (current) use of insulin; Z85.72 Personal history of non-Hodgkin lymphomas; Z79.01 Long term (current) use of anticoagulants; F09 Unspecified mental disorder due to known physiological condition; R21 Rash and other nonspecific skin eruption
CPT/HCPCS: 36415; 36569; 36600; 71010-TC; 71250-TC; 80048-TC; 80053-TC; 80061-TC; 80076-TC; 81000-TC; 82306; 82728-TC; 82803-TC; 82962-TC; 83540-TC; 83605-TC; 83735-TC; 83880; 84100-TC; 84439-TC; 84443-TC; 84484-TC; 85025-TC; 85730-TC; 87040-TC; 87081-TC; 87086-TC; 93307-TC; J1200; J1815; J1956; J2060; J2270; J2543; J2930; J7030; J7040; J7060